=== PATIENT | female | born 1960 | race Caucasian/White ===

== ENCOUNTER 2017-01-11 10:19 | Observation (INO) | payer SELFPAY ==
[~2017-01-11] VITALS: Ht 157.5 cm; Wt 84.8 kg
[2017-01-11] MEDS ORDERED: SODIUM CHLORIDE 0.9% 1,000 ML IV ONE (11:07)
[2017-01-11 12:26] LABS: BASOPHILS % 0.1 % (0.0-2.0); LYMPHOCYTES % 11.8 % (20.0-50.0); MEAN CORPUSCULAR HEMOGLOBIN 25.8 pg (28.0-32.0); MEAN CORPUSCULAR VOLUME 77.8 fL (81.0-99.0); MONOCYTES % 4.5 % (2.0-8.0); NEUTROPHILS % 83.6 % (40.0-76.0); PLATELET 171 x1000/uL (130-400); RED BLOOD CELL COUNT 2.49 mill/uL (4.2-5.4); RED CELL DISTRIBUTION WIDTH 18.4 % (11.6-14.6)
[2017-01-11 12:29] LABS: HEMATOCRIT. 19.4 % (36.0-48.0); HEMOGLOBIN. 6.4 g/dL (12.0-16.0)
[2017-01-11 12:30] LABS: CARBON DIOXIDE 24 mEq/L (21-32); CHLORIDE 112 mEq/L (98-107)
[2017-01-11 12:34] LABS: B-HCG QUANTITATIVE < 1 mIU/mL (<3)
[2017-01-11] MEDS ORDERED: SODIUM CHLORIDE 0.9% 1,000 ML IV NR ×2 (15:00)
[2017-01-11 16:00] VITALS: BP 105/46
[2017-01-11 18:03] VITALS: BP 110/75
[2017-01-11] MEDS ORDERED: ASPI-1159 PO (18:29)
[2017-01-11] MEDS ORDERED: OMEP20TA2 PO (18:29)
[2017-01-11] MEDS ORDERED: FERR-71 PO (18:29)
[2017-01-11] MEDS ORDERED: ACETAMINOPHEN 325MG TABLET PO PRN (19:45)
[2017-01-11 20:00] VITALS: BP 112/60
[2017-01-11] MEDS: LACTATED RINGERS 1,000 ML IV SCH (21:39)
[2017-01-11 21:58] VITALS: BP 100/46
[2017-01-11 22:23] VITALS: BP 97/43
[2017-01-11 23:23] VITALS: BP 80/46
[2017-01-12] VITALS: BP 93/47
[2017-01-12 00:23] VITALS: BP 93/47
[2017-01-12 02:15] LABS: HEMATOCRIT 23.3 % (36.0-48.0); HEMOGLOBIN 7.8 g/dL (12.0-16.0)
[2017-01-12 04:00] VITALS: BP 95/51
[2017-01-12] MEDS ORDERED: FERROUS SULFATE 325MG TABLET PO SCH (07:15)
[2017-01-12 08:00] VITALS: BP 93/48
[2017-01-12] MEDS: LACTATED RINGERS 1,000 ML IV SCH (09:07)
[2017-01-12 10:09] VITALS: BP 93/48
[2017-01-12 12:00] VITALS: BP 95/51
== END 2017-01-12 11:54 | disposition home or self-care (01) ==
LOC: ER 10:25 → INTOOBSV 16:20 → 5WST 16:20 → ENRESERV 16:44 → 5WST 20:15
PROVIDERS: ADMIT Obstetrics & Gynecology; ATTEND Obstetrics & Gynecology
DX: N93.8 Other specified abnormal uterine and vaginal bleeding (principal); R55 Syncope and collapse; D64.9 Anemia, unspecified; D25.9 Leiomyoma of uterus, unspecified; F17.200 Nicotine dependence, unspecified, uncomplicated; N88.8 Other specified noninflammatory disorders of cervix uteri; Z78.0 Asymptomatic menopausal state; Z79.82 Long term (current) use of aspirin; Z79.899 Other long term (current) drug therapy
CPT/HCPCS: 36415; 76830; 76856; 80048; 84702; 85014; 85018; 85025; 86850; 86900; 86901; 86920; 93005; 96360; 96361; 99291; G0378; J7050; J7070; J7120; P9016; J7030